=== PATIENT | male | born 1975 | race Two or more races ===

== ENCOUNTER → 2022-07-05 | Emergency (ER) | payer OTHER, MEDICAID ==
[~2022-07-05] VITALS: Ht 167.6 cm; Wt 91.0 kg
[2022-07-05 19:59] VITALS: BP 123/85
== END | disposition left against medical advice (07) ==
LOC: ER 19:59
DX: R05.9 Cough, unspecified (principal); R09.81 Nasal congestion; Z53.21 Procedure and treatment not carried out due to patient leaving prior to being seen by health care provider; Z20.822 Contact with and (suspected) exposure to COVID-19
CPT/HCPCS: 36415; 87426; 87804